=== PATIENT | female | born 1985 | race Caucasian/White ===

== ENCOUNTER 2016-02-23 17:42 | Emergency (ER) | payer MEDICAID ==
[2016-02-23 17:53] VITALS: RESP 16; TEMP 97.9
[2016-02-23] MEDS ORDERED: ONDANSETRON 4 MG/2 ML VIAL ONE (18:16)
[2016-02-23] MEDS ORDERED: ONDANSETRON 4 MG/2 ML VIAL IVP ONE (18:17)
[2016-02-23] MEDS ORDERED: NS 1,000 ML IV ONE (18:17)
[2016-02-23 18:29] LABS: % IMMATURE GRANULYOCYTES 0.3 % (0.0-1.1); ABSOLUTE IMMATURE GRANULOCYTES 0.03 10^3/uL (0.00-0.10); ADD DIFF? NO; ADD MORPH? NO; ADD SCAN? NO; ATYPICAL LYMPHOCYTE FLAG 20 (0-99); FRAGMENT RBC FLAG 0 (0-99); HEMATOCRIT 37.6 % (38.0-47.0); HEMOGLOBIN 12.5 g/dL (12.6-16.3); LEFT SHIFT FLG 0 (0-99); LIPEMIA HEMOLYSIS FLAG 80 (0-99); MEAN CELL HEMOGLOBIN 27.3 pg (27.9-34.1); MEAN CELL HEMOGLOBIN CONCENTR. 33.2 g/dL (32.4-36.7); MEAN CELL VOLUME 82.1 fL (81.5-99.8); MEAN PLATELET VOLUME 9.7 fL (8.7-11.7); PLATELET CLUMPS FLAG 0 (0-99); PLATELET COUNT 373 10^3/uL (150-400); RED BLOOD CELL COUNT 4.58 10^6/uL (4.18-5.33); RED CELL DISTRIBUTION WIDTH 13.1 % (11.5-15.2)
--- NOTE | 2016-02-23 18:29 | EDPHY ---
H & P Stated Complaint: dizzy, nauseous, left arm tingling, while at work today Time Seen by Provider: 02/23/16 18:24 - Personal History LMP (Females 10-55): 8-14 Days Ago Current Tetanus/Diphtheria Vaccine: Unsure Current Tetanus Diphtheria and Acellular Pertussis (TDAP): Unsure - Medical/Surgical History Hx Asthma: No Hx Chronic Respiratory Disease: No Hx Diabetes: No Hx Cardiac Disease: No Hx Renal Disease: No Hx Cirrhosis: No Hx Alcoholism: No Hx HIV/AIDS: No Hx Splenectomy or Spleen Trauma: No Other PMH: denies - Social History Smoking Status: Never smoked Constitutional: Initial Vital Signs Temperature (C) 36.6 C 02/23/16 17:50 Heart Rate 95 02/23/16 17:50 Respiratory Rate 16 02/23/16 17:50 Blood Pressure 145/63 H 02/23/16 17:50 O2 Sat (%) 96 02/23/16 17:50 O2 Delivery Mode Room Air Allergies/Adverse Reactions: No Known Allergies Allergy (Unverified 02/23/16 17:49) Home Medications: Medication Instructions Recorded Control 02/23/16 Wellbutrin Sr 02/23/16 Medical Decision Making ED Course/Re-evaluation: CHIEF COMPLAINT: Dizziness HISTORY OF PRESENT ILLNESS: The patient is a 30 y/o female complaining of dizziness and lightheadedness since noon today. She notes she did not eat this morning and her symptoms seemed to improve slightly after eating crackers. She developed some mild bilateral hand tingling and her coworkers referred her to the ED. She is asymptomatic upon assessment. She denies recent illness and says she felt normal upon waking this morning. She denies chance of and uses hormonal control. REVIEW OF SYSTEMS: A 10 point review of systems was performed and is negative with the exception of the elements mentioned in the history of present illness. PHYSICAL EXAM: HR, BP, O2 Sat, RR. Temp noted General Appearance: Alert, well hydrated, appropriate, and non-toxic appearing. Head: Atraumatic without scalp tenderness or obvious injury Eyes: Pupils equal, round, reactive to light and accommodation, EOMI, no trauma , no injection. Ears: Clear bilaterally, no perforation, normal landmarks Nose: Atraumatic, no rhinorrhea, clear. Throat: There is no erythema or exudates, no lesions, normal tonsils, mucus membranes moist. Neck: Supple, 2+ carotid upstroke, nontender, no lymphadenopathy. Respiratory: No retractions, no distress, no wheezes, and no accessory muscle use. Lungs are clear to auscultation bilaterally. Cardiovascular: Regular rate and rhythm, no murmurs, rubs, or gallops. Bilateral carotid, radial, dorsalis pedis, and posterior tibial pulses intact. Good capillary refill all extremities. Gastrointestinal: Abdomen is soft, nontender, non-distended, no masses, no rebound, no guarding, no peritoneal signs. Musculoskeletal: Normal active ROM of all extremities, atraumatic. Neurological: Alert, appropriate, and interactive. The patient has normal DTRs and non-focal cranial nerves, motor, sensory, and cerebellar exam. Skin: No rashes, good turgor, no nodules on palpation. 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. DIFFERENTIAL DIAGNOSIS: The differential diagnosis for the patient's dizziness included but was not limited to low blood glucose, peripheral and central causes of vertigo, orthostatic causes including dehydration, cardiogenic and neurogenic causes, and blood loss. MEDICAL DECISION MAKING: This is a 30 y/o female presenting to the ED after an episode of dizziness after not eating all day. She is asymptomatic upon assessment and her exam is unremarkable. She will be discharged home with recommendation to follow up with her PCP for symptoms not improved over the weekend. She agrees with plan. - Data Points Laboratory Results: Laboratory Results 02/23/16 18:03 02/23/16 18:03 02/23/16 18:03 WBC 9.00 10^3/uL (3.80-9.50) RBC 4.58 10^6/uL (4.18-5.33) Hgb 12.5 L g/dL (12.6-16.3) Hct 37.6 L % (38.0-47.0) MCV 82.1 fL (81.5-99.8) MCH 27.3 L pg (27.9-34.1) MCHC 33.2 g/dL (32.4-36.7) RDW 13.1 % (11.5-15.2) Plt Count 373 10^3/uL (150-400) MPV 9.7 fL (8.7-11.7) Neut % (Auto) 56.4 % (39.3-74.2) Lymph % (Auto) 33.3 % (15.0-45.0) [place] % (Auto) 7.8 % (4.5-13.0) Eos % (Auto) 1.8 % (0.6-7.6) Baso % (Auto) 0.4 % (0.3-1.7) Nucleat RBC Rel Count 0.0 % (0.0-0.2) Absolute Neuts (auto) 5.07 10^3/uL (1.70-6.50) Absolute Lymphs (auto) 3.00 10^3/uL (1.00-3.00) Absolute Monos (auto) 0.70 10^3/uL (0.30-0.80) Absolute Eos (auto) 0.16 10^3/uL (0.03-0.40) Absolute Basos (auto) 0.04 10^3/uL (0.02-0.10) Absolute Nucleated RBC 0.00 10^3/uL (0-0.01) Immature Gran % 0.3 % (0.0-1.1) Immature Gran # 0.03 10^3/uL (0.00-0.10) Sodium 142 mEq/L (134-144) Potassium 4.0 mEq/L (3.5-5.2) Chloride 108 mEq/L (97-110) Carbon Dioxide 20 L mEq/l (22-31) Anion Gap 14 mEq/L (8-16) BUN 17 mg/dL (7-23) Creatinine 0.8 mg/dL (0.6-1.0) Estimated GFR > 60 Glucose 128 H mg/dL (70-100) Calcium 9.1 mg/dL (8.5-10.4) Beta HCG, Qual NEGATIVE Medications Given: Discontinued Medications Sodium Chloride (Ns) 1,000 mls @ 0 mls/hr IV ONCE ONE PRN Reason: Wide Open Stop: 02/23/16 18:18 Last Admin: 02/23/16 18:22 Dose: 1,000 mls Ondansetron HCl (Zofran) 4 mg IVP EDNOW ONE Stop: 02/23/16 18:18 Last Admin: 02/23/16 18:22 Dose: 4 mg Departure - Departure Disposition: Home, Routine, Self-Care Clinical Impression: Dizziness Condition: Good Instructions: Dizziness (ED) Additional Instructions: Eat at regular intervals. Follow up with your primary care provider for symptoms not improved by Thursday. Referrals: Brigid Swartz MD [Primary Care Provider] - As per Instructions Report Scribed for: Austin Barker Report Scribed by: Francie Mcmahon Date of Report: 02/23/16 Time of Report: 18:31
[2016-02-23 18:38] LABS: ANION GAP 14 mEq/L (8-16); CALCIUM 9.1 mg/dL (8.5-10.4); CARBON DIOXIDE 20 mEq/l (22-31); CHLORIDE 108 mEq/L (97-110); CREATININE 0.8 mg/dL (0.6-1.0); GLOMERULAR FILTRATION RATE > 60; GLUCOSE 128 mg/dL (70-100); SODIUM 142 mEq/L (134-144)
[2016-02-23] MEDS ORDERED: ONDANSETRON 4MG PREPACK#2 BTL TAKEHOME ONE ×2 (19:00→19:02)
[2016-02-23 19:12] VITALS: BP 137/82; PULSE 89; O2SAT 95
== END 2016-02-23 19:11 | disposition home or self-care (01) ==
DX: R42 Dizziness and giddiness (principal)
CPT/HCPCS: 96374; J2405

== ENCOUNTER 2017-07-28 12:04 | Emergency (ER) | payer MEDICAID ==
[2017-07-29 06:10] VITALS: BP 121/79
--- NOTE | 2017-07-31 00:49 | EDPHY ---
H & P Stated Complaint: L ankle injury Source: Patient Exam Limitations: No limitations - Personal History LMP (Females 10-55): Unknown Current Tetanus/Diphtheria Vaccine: Unsure Current Tetanus Diphtheria and Acellular Pertussis (TDAP): Unsure - Medical/Surgical History Hx Asthma: No Hx Chronic Respiratory Disease: No Hx Diabetes: No Hx Cardiac Disease: No Hx Renal Disease: No Hx Cirrhosis: No Hx Alcoholism: No Hx HIV/AIDS: No Hx Splenectomy or Spleen Trauma: No Other PMH: denies - Social History Smoking Status: Never smoked Time Seen by Provider: 07/28/17 12:25 HPI/ROS: HPI: This is a 31-year-old female who presents with Chief Complaint: Left ankle injury Location: Left ankle Quality: Injury Duration: 1 3 hr prior to arrival Signs and Symptoms: No bleeding, no radiation, no numbness, no weakness, no tingling, no incontinence, no decreased range of motion, + swelling, + pain, no fever Timing: Acute Severity: 06/25 Context: The patient is currently 28 weeks and was walking off of a curb and twisted her left ankle. She reports that she felt immediate, moderate , constant, nonradiating pain. She reports that pain is worsened with weight- bearing. She has a history of ankle sprains in her left ankle. She denies any paresthesias, weakness, numbness. She has tried no [id number] medications or applied ice. She denies any abdominal pain, pelvic cramping, vaginal bleeding or discharge. Modifying Factors: None Comment: ROS: see HPI Constitutional: No fever, no chills, no weight loss Eyes: No blurred vision Respiratory: No shortness of breath, no cough Cardiovascular: No chest pain Gastrointestinal: No nausea, no vomiting no diarrhea Genitourinary: No dysuria Extremities: No myalgias Neurologic: No weakness, no numbness Skin: No rashes Hematologic: No bruising, no bleeding MEDICAL/SURGICAL/SOCIAL HISTORY: Medical history: Depression Surgical history: Denies Social history: . Nonsmoker CONSTITUTIONAL: Extremely polite and cooperative adult white female, awake and alert, no obvious distress HEENT: Atraumatic and normocephalic. NECK: supple, no midline tenderness, flexion 45 degrees, extension 45 degrees, right and left lateral flexion 45 degrees. No meningismus. Cardiovascular: Normal S1/S2, regular rate, regular rhythm, without murmur rub or gallop. PULMONARY/CHEST: Symmetrical and nontender. no crepitus. Clear to auscultation bilaterally. Good air movement. No accessory muscle usage. ABDOMEN: Soft, gravid, nondistended, nontender, no ecchymosis. EXTREMITIES: 2/2 pulses, strength 5/5, left Ankle: Mild swelling over the lateral malleolus. Plantar flexion to 50, dorsiflexion to 20. Foot inversion to 35 degree. No tenderness/swelling Anterior talofibular ligament. No tenderness/swelling Calcaneofibular ligament, moderate tenderness/swelling posterior talofibular ligament, no tenderness/swelling posterior inferior tibiofibular ligament. Achilles tendon intact. DIP/PIP/MCP flexion/extension intact with good light touch sensation. no deformities, no clubbing, no cyanosis or edema. NEUROLOGICAL: no focal neuro deficits. GCS 15. Light touch sensation intact. SKIN: Warm and dry, no erythema. no rash. Good capillary refill. (Tara De Jesus) Constitutional: Initial Vital Signs Temperature (C) 36.9 C 07/28/17 12:25 Heart Rate 90 07/28/17 12:25 Respiratory Rate 18 07/28/17 12:25 Blood Pressure 121/79 H 07/28/17 12:25 O2 Sat (%) 97 07/28/17 12:25 O2 Delivery Mode Room Air Allergies/Adverse Reactions: No Known Allergies Allergy (Unverified 02/23/16 17:49) Home Medications: Medication Instructions Recorded Control 02/23/16 Wellbutrin Sr 02/23/16 Medical Decision Making ED Course/Re-evaluation: Left ankle x-ray ordered and my read via PAC shows no fracture, dislocation. Placed in ankle stirrup splint and given crutches. No signs of neurovascular compromise/tenting of skin/compartment syndrome/ extremities and joints examined above and below area of concern and are neurovascularly intact. This patient was seen under the supervision of my secondary supervising physician. I evaluated care for this patient independently. Discussed this patient with Dr. Barker who did not see the patient. This chart was completed 2 days after the patient was seen in the emergency room as the hospital sustained a down time in the electronic medical records. Please note that the chart may be incomplete. ([place]) Differential Diagnosis: Differential diagnosis includes but is not limited to tibia fracture, fibula fracture, Lisfranc fracture, sprain, contusion, hematoma. (Tara De Jesus) Other Provider: This note was created during prolonged hospital-wide EHR downtime and may be incomplete or contain inaccuracies to due circumstance limitations. (Austin Barker) Departure - Departure Disposition: Home, Routine, Self-Care Clinical Impression: Sprain of left ankle Qualifiers: Encounter type: initial encounter Involved ligament of ankle: posterior talofibular ligament Qualified Code(s): S93.492A - Sprain of other ligament of left ankle, initial encounter Condition: Good Instructions: Ankle Sprain (ED), Ankle Stirrup Splint (ED) Additional Instructions: Wear the ankle stirrup splint while out of bed until pain free. Use crutches to aid ambulation. Start with toe-touch weight-bearing status and slowly advance as directed. Take Tylenol 650 mg every 4 hours as needed for pain. Apply ice for 30 minutes at a time; 2-3 times per day for the next 1-2 days. The x-rays obtained in the emergency department today demonstrate no evidence of an obvious fracture. Sometimes fractures are not obvious on the initial set of x-rays performed in the ED. For this reason, you should have repeat x-rays performed in 7-10 days if you are having any pain exclude the possibility of an occult fracture. Referrals: Brigid Swartz MD [Primary Care Provider] - As per Instructions
== END 2017-07-28 15:05 | disposition home or self-care (01) ==
DX: O9A.213 Injury, poisoning and certain other consequences of external causes complicating pregnancy, third trimester (principal); S93.492A Sprain of other ligament of left ankle, initial encounter; Z3A.28 28 weeks gestation of pregnancy; X50.9XXA Other and unspecified overexertion or strenuous movements or postures, initial encounter; Y92.89 Other specified places as the place of occurrence of the external cause; Y99.8 Other external cause status; Y93.01 Activity, walking, marching and hiking